=== PATIENT | female | born 1945 | race Caucasian/White ===

== ENCOUNTER 2019-05-07 09:11 | Inpatient (IN) ==
[2019-05-07] MEDS ORDERED: TYLENOL PO ONE (09:38)
[2019-05-07] MEDS ORDERED: NS 1,000 ML IV ONE (09:38)
--- NOTE | 2019-05-07 09:40 | PROVIDER DOCUMENTATION ---
HPI-General Adult - General Chief Complaint: Nausea Stated Complaint: CHILLS, NAUSEA Time Seen by Provider: 05/07/19 09:23 Source: patient Allergies/Adverse Reactions: Patient Allergies Allergy/AdvReac Type Severity Reaction Status Date / Time niacin Allergy ITCHING Verified 05/07/19 09:20 Home Medications: Home Medication List Medication Instructions Recorded Confirmed Last Taken Type Alprazolam 0.5 mg PO TID 11/05/14 05/07/19 11/05/14 16:15 History Amlodipine Besylate/Benazepril 1 each PO DAILY 11/05/14 05/07/19 11/05/14 07:00 History [Lotrel 10/20 mg Capsule] Chlordiazepoxide/Clidinium Br 1 cap PO TID 11/05/14 05/07/19 11/05/14 12:00 Hist ory [Chlordiazepoxide-Clidinium Cap] Hyoscyamine [Levsin] 0.125 mg PO BID 11/05/14 05/07/19 11/05/14 07:00 History Metoclopramide [Reglan] 10 mg PO AC + HS 11/05/14 05/07/19 11/05/14 07:00 H istory Metoprolol [Lopressor] 12.5 mg PO DAILY 11/05/14 05/07/19 11/04/14 History Omeprazole 40 mg PO DAILY 11/05/14 05/07/19 11/04/14 History SIMVAstatin [Zocor] 40 mg PO QHS 11/05/14 05/07/19 11/04/14 History Sitagliptin Phosphate [Januvia] 100 mg PO DAILY 11/05/14 05/07/19 11/05/14 History Glimepiride 2 mg PO DAILY 05/07/19 05/07/19 Unknown History Pramipexole Di-HCl [Pramipexole 0.125 mg PO TID 05/07/19 05/07/19 Unknown History Dihydrochloride] - History of Present Illness -Gen Adult Nature of Presenting Problems: Pt. is 73 yof that presents with c/o fever, and nausea but no vomiting. Pt. reports she is diabetic. Pt. states her symptoms began last night. Location of Pain/Injury: reports: generalized. denies: none, head, face, mouth, neck, chest, upper extremity, hand(s), abdomen, back, pelvis, genitalia, lower extremity, feet, upper body, lower body, other Pain Radiation: reports: no radiation. denies: arm(s), back, buttocks, chest, epigastric, feet, groin, jaw, flank (L), legs (lower), LLQ, LUQ, neck, periumbilical, flank (R), RLQ, RUQ, shoulder(s), scapula, scrotal, sternal notch, suprapubic, legs (upper), urethral, vaginal, other Quality of Pain: reports: aching. denies: burning, sharp, tightness Severity: reports: moderate. denies: mild, severe Onset/Duration: reports: abrupt, last night Timing: reports: still present. denies: improving, intermittent, getting worse Context/Activities at Onset: reports: none. denies: light activity, moderate activity, vigorous activity, recent emotional stress, recent physical stress, recent trauma history, possible bad food, cold exposure, eating, out of country travel, rest, sleep, sexual activity, other Modifying Factors: improves with: nothing Associated Symptoms: reports: fever/chills, muscle aches, nausea. denies: denies symptoms, anxiety, arm pain, back/neck pain, chest pain, constipation, cough, diaphoresis, diarrhea, dizziness, EENT symptoms, fatigue, genitourinary problems, headaches, heartburn, joint pain, loss of appetite, malaise, sinus congestion/drainage, rash, seizure, shortness of breath, sensory/motor loss, pain with inspiration, swelling/mass in abdomen, syncope, vomiting, weakness, trouble walking, other Similar Symptoms Previously?: Yes Recently seen or treated by another doctor?: No Review of Systems - Adult - REVIEW OF SYSTEMS - ADULT Constitutional: reports: see HPI, chills, fever. denies: fatique, night sweats, weight loss Eyes: reports: no symptoms reported Ears, Nose, Mouth & Throat: reports: no symptoms reported Cardiovascular: reports: no symptoms reported Respiratory: reports: no symptoms reported Gastrointestinal: reports: see HPI, nausea. denies: abdominal pain, difficulty swallowing, vomiting Genitourinary: reports: no symptoms reported Musculoskeletal: reports: see HPI, muscle aches. denies: bone pain, joint pain, neck pain Integumentary: reports: no symptoms reported Neurological: reports: no symptoms reported Psychiatric: reports: no symptoms reported Past History - Adult - PAST MEDICAL HISTORY-ADULT Review of Records: reports: Old Records Reviewed, Nursing Assessment Review, Medications Reviewed, Social history reviewed & non-contributory. Major Childhood Illnesses: reports: denies history Cardiovascular: reports: cardiac disease, HTN, hyperlipidemia, palpitations (PVCs) Gastrointestinal: reports: diverticulosis, GERD, IBS, other (spastic colon) Obstetrical/Gynecological: reports: other (breast cancer) Endocrine/Immune: reports: Diabetes - PRIOR SURGERIES/PROCEDURES Surgical/Procedure History: reports: none - IMMUNIZATION STATUS Childhood Immunizations: NUTD Flu Vaccine: UTD - FAMILY HISTORY Family History: reviewed, not pertinent - SOCIAL HISTORY Smoking: denies Physical Exam-General - PHYSICAL EXAM-ADULT Initial Vital Signs Reviewed: Yes - CONSTITUTIONAL General Appearance: alert, moderate distress, thin. negative: anxious, slow to respond, obtunded, combative - EYES Eyes: PERRL/EOMI, pink conjunctivae - HEAD, EARS, NOSE, MOUTH & THROAT HENMT: normocephalic/atraumatic, moist mucous membranes - NECK Neck: non-tender, full range of motion, supple, normal inspection - RESPIRATORY Respiratory: lungs clear, normal breath sounds - CARDIOVASCULAR Cardiovascular: regular rate, rhythm, no edema, tachycardia. negative: bradycardia, extra beats, friction rub, irregularly irregular - GASTROINTESTINAL (ABDOMEN) Abdominal Exam: normal bowel sounds, non tender, soft - LYMPHATIC Lymphatic: no adenopathy - MUSCULOSKELETAL Back Exam: normal inspection, no CVA tenderness, no vertebral tenderness Extremity: normal range of motion, non-tender, normal gait, normal inspection Peripheral Pulses: radial (R): 2+, radial (L): 2+ - SKIN Integumentary: warm. negative: cyanosis, erythema, mottled, rash, tenderness - NEUROLOGIC Neurologic: grossly normal, no motor/sensory deficits - PSYCHIATRIC Psych/Mental Status: normal mood/affect, normal thought content, normal thought process, oriented x 3. negative: anxious, paranoid, tearful Progress - PLAN OF CARE/RESULTS Progress/Plan/Lab Results: Vital Signs - 8 hr 05/07/19 09:15 Temperature 99.3 F Pulse Rate 106 H Respiratory Rate 20 Blood Pressure 126/55 O2 Sat by Pulse Oximetry 95 Orders Category Date Time Status FSBS [Finger Stick Blood Sugar (ED)] DIRECTED Care 05/07/19 09:36 Ordered Saline Loc NOW Care 05/07/19 09:36 Ordered CHEST-2 VIEWS [RAD] Stat Exams 05/07/19 09:37 Ordered ACETONE SERUM [CHEM] Stat Lab 05/07/19 09:37 Uncollected BLOOD CULTURE [BLDCUL] Stat Lab 05/07/19 09:36 Uncollected CBC WITH ELECTRONIC DIFF [HEME] Stat Lab 05/07/19 09:36 Uncollected CK PROFILE [SP CHEM] Stat Lab 05/07/19 09:36 Uncollected COMPREHENSIVE METABOLIC PANEL [CHEM] Stat Lab 05/07/19 09:36 Uncollected LACTATE, PLASMA [CHEM] Stat Lab 05/07/19 09:[address] W/POSS RFLX CULT [URINALYSIS] Stat Lab 05/07/19 09:36 Uncollected Laboratory Tests 05/07/19 05/07/19 05/07/19 09:35 09:48 09:48 WBC 22.03 H RBC 4.50 Hgb 13.1 Hct 38.8 MCV 86.2 MCH 29.1 MCHC 33.8 RDW Std Deviation 12.6 Plt Count 155 MPV 11.8 H Immature Gran % (Auto) 0.2 Neut % (Auto) 86.8 H Lymph % (Auto) 5.8 L Hendry % (Auto) 6.8 Eos % (Auto) 0.2 Baso % (Auto) 0.2 Immature Gran # (Auto) 0.05 H Neut # (Auto) 19.13 H Lymph # (Auto) 1.27 Hendry # (Auto) 1.49 H Eos # (Auto) 0.05 Baso # (Auto) 0.04 Sodium 137 Potassium 4.1 Chloride 100 Carbon Dioxide 24 L Anion Gap 13 BUN 14 Creatinine 1.0 H Estimated GFR/1.73 m2 54 BUN/Creatinine Ratio 14 Glucose 292 H Calculated Osmolality 285 Calcium 8.9 Total Bilirubin 0.70 AST 11 ALT 10 Alkaline Phosphatase 57 Creatine Kinase 48 Total Protein 6.3 Albumin 4.3 Globulin 2.0 Albumin/Globulin Ratio 2.0 Plasma Lactate Urine Color YELLOW Urine Clarity SL. CLOUDY A Urine pH 5.0 Ur Specific Centuria 1.015 Urine Protein TRACE A Urine Ketones NEGATIVE Urine Blood 1+ A Urine Nitrite POSITIVE A Urine Bilirubin NEGATIVE Urine Urobilinogen NORMAL Urine WBC 2+ A Urine Glucose 2+(250 mg/dL) A Acetone Level 05/07/19 05/07/19 09:48 09:48 WBC RBC Hgb Hct MCV MCH MCHC RDW Std Deviation Plt Count MPV Immature Gran % (Auto) Neut % (Auto) Lymph % (Auto) Hendry % (Auto) Eos % (Auto) Baso % (Auto) Immature Gran # (Auto) Neut # (Auto) Lymph # (Auto) Hendry # (Auto) Eos # (Auto) Baso # (Auto) Sodium Potassium Chloride Carbon Dioxide Anion Gap BUN Creatinine Estimated GFR/1.73 m2 BUN/Creatinine Ratio Glucose Calculated Osmolality Calcium Total Bilirubin AST ALT Alkaline Phosphatase Creatine Kinase Total Protein Albumin Globulin Albumin/Globulin Ratio Plasma Lactate 1.7 Urine Color Urine Clarity Urine pH Ur Specific Centuria Urine Protein Urine Ketones Urine Blood Urine Nitrite Urine Bilirubin Urine Urobilinogen Urine WBC Urine Glucose Acetone Level NEGATIVE Discussed results and plan of care with patient. Patient agrees with plan and verbalizes understanding. Result Diagrams: 05/07/19 09:48 05/07/19 09:48 - XRAY 1 XRAY Study: Chest [facility] - [address] [place] [address] [place], [place] [id number] [place] [address] - [address] [place] [address] Department of Imaging Patient: JOSTIN CEDEÑO Date: 05/07/19#: [id number] : 1945DM [id number] Age/Sex: 73/FRoom/Bed: Loc: P.ED Ordering Physician: Candy Kaplan Family Physician: Cy Bedolla MD Reason for Procedure: fever ___ Signed EXAM: CHEST-2 VIEWS - 05/07/2019 HISTORY: fever TECHNIQUE: Chest two views COMPARISON: 03/05/2019 FINDINGS: Heart size is normal. There is a small to moderate size hiatal hernia with air-fluid level. Inspiration is mildly shallow. There is ill-defined mild infiltrate at the right midlung. There is no dense consolidation, pleural effusion, or pneumothorax identified. There is mid thoracic spondylosis or ankylosis noted. There has been prior right mastectomy. IMPRESSION: Ill-defined mild infiltrate at right midlung. This may relate to bronchopneumonia. Hiatal hernia. Electronically signed by Bryn Willard 05/07/2019 10:18 AM 05/07/19 1018 Interpreting Physician: Bryn Willard MD Dictated Date/Time: 05/07/19 1015 cc: Candy Kaplan; Cy Bedolla MD) XRAY Interpretation: See note - CONSULTS/PCP/HOSPITALIST Notification #1 *Consult/PCP/Hospitalist*: Macey Cisse Time Discussed: 11:40 Reason/Comments: Admission Consult Disposition: Will see in ED, Admit Departure - Departure Date of Disposition Decision: 05/07/19 Time of Disposition Decision: 10:45 DIAGNOSIS: Hyperglycemia Pneumonia Qualifiers: Pneumonia type: due to unspecified organism Laterality: unspecified laterality Lung location: unspecified part of lung Qualified Code(s): J18.9 - Pneumonia, unspecified organism UTI (urinary tract infection) Qualifiers: Urinary tract infection type: acute cystitis Hematuria presence: with hematuria Qualified Code(s): N30.01 - Acute cystitis with hematuria Disposition: ADMITTED INPATIENT 09 Certified Medical Emergency: Emergent Condition: Stable Referrals and Follow-Ups: Cy Bedolla MD [Primary Care Provider] - - Critical Care Note This patient required my direct & personal management of CC.: No Attestation - Physician/ ROSETTA Attestation Patient care was provided by Advanced Practice Provider:: Yes Advanced Practice Provider:: Candy Kaplan Advanced Practice Provider documentation review:: The Mid-level provider documentation, treatment plan and medical decision making was reviewed by the physician who agrees with all treatment and medical decision making by the MLP. The physician spent face to face time with patient:: No Advanced Practice Provider documentation review:: Supervising physician onsite and consulted in the evaluation and care of this patient. The physician did not have a face to face encounter with the patient.
--- NOTE | 2019-05-07 10:20 | Diag Imaging Result Doc PS360 ---
EXAM: CHEST-2 VIEWS - 05/07/2019 HISTORY: fever TECHNIQUE: Chest two views COMPARISON: 03/05/2019 FINDINGS: Heart size is normal. There is a small to moderate size hiatal hernia with air-fluid level. Inspiration is mildly shallow. There is ill-defined mild infiltrate at the right midlung. There is no dense consolidation, pleural effusion, or pneumothorax identified. There is mid thoracic spondylosis or ankylosis noted. There has been prior right mastectomy. IMPRESSION: Ill-defined mild infiltrate at right midlung. This may relate to bronchopneumonia. Hiatal hernia. Electronically signed by Bryn Willard 05/07/2019 10:18 AM
[2019-05-07] MEDS ORDERED: ROCEPHIN 1 GM in NS 50 ML IV ONE (10:30)
[2019-05-07] MEDS ORDERED: ZITHROMAX 500 MG/NS 500 MG/250 ML IVPB IV ONE (10:30)
[2019-05-07 10:35] LABS: BASO# 0.04 X1000 (0.0-0.2); BASO% 0.2 % (0.0-0.8); EOS# 0.05 X1000 (0.0-0.7); EOS% 0.2 % (0.0-10.0); HEMATOCRIT 38.8 % (37.0-47.0); HEMOGLOBIN 13.1 g/dL (12.0-16.0); IMM GRAN# 0.05 X1000 (0.0-0.04); IMM GRAN% 0.2 % (0.0-0.5); LYMPH# 1.27 X1000 (1.2-3.4); LYMPH% 5.8 % (20.5-51.1); MCH 29.1 PG (27-31); MCHC 33.8 g/dL (33-37); MCV 86.2 FL (81-99); MONO# 1.49 X1000 (0.11-0.59); MONO% 6.8 % (1.7-9.3); MPV 11.8 FL (7.4-10.4); NEUT# 19.13 X1000 (1.4-6.5); NEUT% 86.8 % (42.2-75.2); PLT 155 X1000 (130-400); RDW 12.6 % (11.5-14.5); WBC 22.03 X1000 (4.8-10.8)
[2019-05-07 10:47] LABS: ALBUMIN 4.3 g/dL (3.5-5.0); CALCIUM 8.9 mg/dL (8.8-10.2); POTASSIUM 4.1 mmol/L (3.5-5.1); TOTAL BILIRUBIN 0.7 mg/dL (0.20-1.00); TOTAL PROTEIN 6.3 g/dL (6.3-8.3)
[2019-05-07 11:07] LABS: BILIRUBIN URINE NEGATIVE (NEGATIVE); BLOOD URINE 1+ (NEGATIVE); KETONE URINE NEGATIVE (NEGATIVE); LEUKOCYTES URINE 2+ (NEGATIVE); NITRITE URINE POSITIVE (NEGATIVE); PROTEIN URINE TRACE mg/dL (NEGATIVE); SP GRAVITY URINE 1.015; UROBILINOGEN URINE NORMAL
[2019-05-07 11:08] LABS: CLARITY SL. CLOUDY (CLEAR); COLOR YELLOW
[2019-05-07 11:20] LABS: URINE BACTERIA 2+ /HFP; URINE EPITHELIAL CELLS >10 /HPF (<10); URINE RBC <10 /HPF (<10); URINE SOURCE CLEAN CATCH; URINE WBC 20-40 /HPF (<10)
[2019-05-07] MEDS ORDERED: ZOFRAN IV PRN (14:10)
[2019-05-07] MEDS ORDERED: TYLENOL PO PRN (14:10)
[2019-05-07] MEDS: MIRAPEX PO SCH ×2 (14:56→17:00)
[2019-05-07] MEDS: XANAX PO SCH ×2 (14:56→17:00)
[2019-05-07] MEDS: NS 1,000 ML IV SCH (14:57)
[2019-05-07] MEDS: LIBRAX PO SCH ×2 (14:57→17:01)
[2019-05-07] MEDS: REGLAN PO SCH ×2 (14:59→21:30)
--- NOTE | 2019-05-07 21:25 | HISTORY AND PHYSICAL ---
CHIEF COMPLAINT: Fever, nausea. She also complained of lower quadrant abdominal pain. She reports dysuria as well. She was lying supine in bed in no distress. Ms. Cohen states that she woke up in the middle of night, reported she was sweating profusely and felt awful. This prompted her to be evaluated in the ER where she was found to have pneumonia and a urinary tract infection. The patient also had some relative hyperglycemia. She had an elevated white count of 22,000. She reports no CVA tenderness. No uche emesis. No bleeding. PAST MEDICAL HISTORY: She has diabetes. She has chronic anxiety disorder. She has hypertension. She has GERD, dyslipidemia. She has IBS. She has a history of breast cancer. SOCIAL HISTORY: No tobacco or ethanol. ALLERGIES: To niacin. MEDICATIONS: Include Zocor 40, Xanax 0.5 t.i.d., Librax, glimepiride 2 daily, Januvia 100 daily, Levsin 0.125 b.i.d., Lopressor 12.5 daily, amlodipine/benazepril 10/20 daily, omeprazole 40 daily, pramipexole 0.125 t.i.d., Reglan 10 t.i.d. REVIEW OF SYSTEMS: Otherwise negative times a 10-point review of systems. PHYSICAL EXAM: VITAL SIGNS: Blood pressure 123/51, heart rate of 86, respiratory rate 18, temperature 98.3 degrees, 100% on room air. GENERAL: A well-developed female in no acute distress. HEAD EXAM: Normocephalic, atraumatic. EYE EXAM: Pupils equal, round, reactive to light. Extraocular movements were intact. EAR, NOSE AND THROAT EXAM: She had moist mucous membranes. NECK: Supple. CARDIOVASCULAR: Regular rate and rhythm. PULMONARY: She has rales at the right base. No wheezing. GASTROINTESTINAL: Soft, nontender, nondistended. Bowel sounds are positive. GENITOURINARY: There was no suprapubic tenderness, and she had no CVA tenderness. MUSCULOSKELETAL: 4 to 5 in all 4 extremities. NEUROLOGICAL EXAM: Cranial nerves 2 through 12 were grossly intact. LABORATORY DATA: White count is 22, hemoglobin and hematocrit 13 and 38, platelets 155,000. Basic was normal except for sugar 286. UA positive nitrites, 20 to 40 white blood cells, but she had greater than 10 squamous cells. Chest x-ray showed some haziness that may be a right lower lobe infiltrate. ASSESSMENT: This is a 73-year-old diabetic female with hypertension, hyperlipidemia presenting with a relatively low pneumonia but a complicated urinary tract infection. 1. Complicated urinary tract infection. We will continue empiric antibiotics with Rocephin. She is symptomatic with lower quadrant pain. If she is not much improved, we may need to consider CT imaging to evaluate for pyelonephritis. 2. Diabetes, which is not under good control currently, may be secondary to infection. We will continue her medications, pursue sliding scale insulin and follow closely. 3. Hypertension. We will continue regular medications and follow. 4. Right lower lobe pneumonia. We will continue empiric antibiotics with Rocephin and azithromycin, pulmonary toilet and follow. DISPOSITION: Overall improved. Anticipate discharge hopefully in the next 24 to 48 hours. cc: MD Cy Osborne MD
[2019-05-07] MEDS: HUMULIN R (PARKWAY) SUBQ SCH (21:29)
[2019-05-07] MEDS: LEVSIN PO SCH (21:29)
[2019-05-07] MEDS: ZOCOR PO SCH (21:30)
[2019-05-08] MEDS: NS 1,000 ML IV SCH ×4 (00:59→23:28)
[2019-05-08] MEDS: HUMULIN R (PARKWAY) SUBQ SCH ×4 (06:27→20:44)
[2019-05-08] MEDS: PRILOSEC PO SCH (06:27)
[2019-05-08 07:02] LABS: BASO# 0.03 X1000 (0.0-0.2); BASO% 0.3 % (0.0-0.8); EOS# 0.19 X1000 (0.0-0.7); EOS% 1.8 % (0.0-10.0); HEMATOCRIT 35.3 % (37.0-47.0); HEMOGLOBIN 11.6 g/dL (12.0-16.0); IMM GRAN# 0.02 X1000 (0.0-0.04); IMM GRAN% 0.2 % (0.0-0.5); LYMPH# 1.88 X1000 (1.2-3.4); LYMPH% 17.5 % (20.5-51.1); MCH 28.7 PG (27-31); MCHC 32.9 g/dL (33-37); MCV 87.4 FL (81-99); MONO# 0.82 X1000 (0.11-0.59); MONO% 7.6 % (1.7-9.3); MPV 10.9 FL (7.4-10.4); NEUT# 7.82 X1000 (1.4-6.5); NEUT% 72.6 % (42.2-75.2); PLT 130 X1000 (130-400); RBC 4.04 XMIL (4.2-5.4); RDW 12.7 % (11.5-14.5); WBC 10.76 X1000 (4.8-10.8)
[2019-05-08 07:20] LABS: AGAP 9; ALBUMIN 3.5 g/dL (3.5-5.0); ALKALINE PHOSPHATASE 51 U/L (32-104); BUN 9 mg/dL (8-22); CALCIUM 8.3 mg/dL (8.8-10.2); CHLORIDE 106 mmol/L (98-107); COSMO 283; CREATININE 0.7 mg/dL (0.5-0.9); ESTIMATED GFR > 60; GLUCOSE 185 mg/dL (70-104); GOT 10 U/L (10-30); GPT 8 U/L (10-36); MAGNESIUM 1.5 mg/dL (1.5-2.7); SODIUM 140 mmol/L (136-145); TCO2 25 mmol/L (25-35); TOTAL PROTEIN 5.8 g/dL (6.3-8.3)
--- NOTE | 2019-05-08 07:29 | Diag Imaging Result Doc PS360 ---
EXAM: CHEST-2 VIEWS HISTORY: pneumonia TECHNIQUE: Chest two views COMPARISON: 05/07/2019 FINDINGS: The lungs are well expanded. The heart is not enlarged. The vessels are not distended. There are no infiltrates. No pleural effusions. There are surgical clips in the right axilla. Small hiatal hernia. IMPRESSION: No definite pneumonia. Electronically signed by Antolin Duran 05/08/2019 7:26 AM
[2019-05-08 07:55] LABS: HEMOGLOBIN A1C 9.1 % (4.8-6.0)
[2019-05-08] MEDS: LEVSIN PO SCH ×2 (08:06→20:44)
[2019-05-08] MEDS: JANUVIA PO SCH (08:06)
[2019-05-08] MEDS: AMARYL PO SCH (08:06)
[2019-05-08] MEDS: MIRAPEX PO SCH ×3 (08:07→16:59)
[2019-05-08] MEDS: REGLAN PO SCH ×4 (08:07→20:43)
[2019-05-08] MEDS: NORVASC PO SCH (08:07)
[2019-05-08] MEDS: LIBRAX PO SCH ×3 (08:07→16:59)
[2019-05-08] MEDS: LOTENSIN PO SCH (08:09)
[2019-05-08] MEDS: XANAX PO SCH ×3 (08:09→16:59)
[2019-05-08] MEDS: LOPRESSOR PO SCH (08:09)
[2019-05-08] MEDS: ROCEPHIN 1 GM in NS 50 ML IV SCH (10:34)
[2019-05-08] MEDS: ZITHROMAX 500 MG/NS 500 MG/250 ML IVPB IV SCH (11:05)
--- NOTE | 2019-05-08 20:01 | PROGRESS NOTE ---
DATE: 05/08/2019 SUBJECTIVE: Patient has no new complaints. Notes that she is feeling okay. In fact, states that she feels a lot better than she did on admission. Denies any fevers or chills. PHYSICAL EXAMINATION: Vitals: Temperature 98.3, pulse 79, respiratory rate 18, BP 130/65. General: Patient is awake currently in no distress. Pleasant to talk with, sitting up on the side of bed. HEENT: Normocephalic. Neck: Supple. Cardiovascular: Regular rate. Chest: Clear and nonlabored. Abdomen: Soft, nondistended. Extremities: Moves all extremities. ASSESSMENT: 1. Gram-negative mustapha urinary tract infection. Culture and sensitivity still pending. 2. Diabetes. 3. Hypertension. 4. Right lower lobe pneumonia. 5. Leukocytosis. White count of 22, currently down to 10. PLAN: We will continue Rocephin and azithromycin. We will follow her cultures. Hopefully, she can be discharged home tomorrow if symptoms continue to improve. cc: Alberto Knox MD
[2019-05-08] MEDS: ZOCOR PO SCH (20:43)
[2019-05-09 05:15] VITALS: BP 133/62
[2019-05-09] MEDS: NS 1,000 ML IV SCH (05:48)
[2019-05-09] MEDS: PRILOSEC PO SCH ×2 (05:49→06:09)
[2019-05-09] MEDS: HUMULIN R (PARKWAY) SUBQ SCH ×2 (06:08→11:17)
[2019-05-09 06:09] LABS: HEMATOCRIT 32.9 % (37.0-47.0); HEMOGLOBIN 10.8 g/dL (12.0-16.0); MCH 28.6 PG (27-31); MCHC 32.8 g/dL (33-37); RBC 3.78 XMIL (4.2-5.4); RDW 12.5 % (11.5-14.5); WBC 8.18 X1000 (4.8-10.8)
[2019-05-09 06:10] LABS: BASO# 0.05 X1000 (0.0-0.2); BASO% 0.6 % (0.0-0.8); EOS# 0.26 X1000 (0.0-0.7); EOS% 3.2 % (0.0-10.0); IMM GRAN# 0.04 X1000 (0.0-0.04); IMM GRAN% 0.5 % (0.0-0.5); LYMPH% 23.2 % (20.5-51.1); MONO# 0.71 X1000 (0.11-0.59); MONO% 8.7 % (1.7-9.3); MPV 11.4 FL (7.4-10.4); NEUT# 5.22 X1000 (1.4-6.5); NEUT% 63.8 % (42.2-75.2); PLT 139 X1000 (130-400)
[2019-05-09 06:24] LABS: AGAP 9; BUN 9 mg/dL (8-22); CALCIUM 7.6 mg/dL (8.8-10.2); CHLORIDE 107 mmol/L (98-107); COSMO 284; CREATININE 0.7 mg/dL (0.5-0.9); ESTIMATED GFR > 60; GLUCOSE 177 mg/dL (70-104); POTASSIUM 3.6 mmol/L (3.5-5.1); SODIUM 141 mmol/L (136-145); TCO2 25 mmol/L (25-35)
[2019-05-09] MEDS: LEVSIN PO SCH (08:39)
[2019-05-09] MEDS: MIRAPEX PO SCH (08:39)
[2019-05-09] MEDS: LOTENSIN PO SCH (08:39)
[2019-05-09] MEDS: AMARYL PO SCH (08:39)
[2019-05-09] MEDS: XANAX PO SCH (08:40)
[2019-05-09] MEDS: LOPRESSOR PO SCH (08:40)
[2019-05-09] MEDS: REGLAN PO SCH ×2 (08:40→11:16)
[2019-05-09] MEDS: LIBRAX PO SCH (08:40)
[2019-05-09] MEDS: JANUVIA PO SCH (08:40)
[2019-05-09] MEDS: NORVASC PO SCH (10:22)
[2019-05-09] MEDS: ROCEPHIN 1 GM in NS 50 ML IV SCH (11:15)
[2019-05-09] MEDS: ZITHROMAX 500 MG/NS 500 MG/250 ML IVPB IV SCH (11:16)
--- NOTE | 2019-05-10 02:08 | DISCHARGE SUMMARY ---
ADMISSION DATE: 05/07/2019 DISCHARGE DATE: 05/09/2019 DIAGNOSES: 1. Right lower lobe pneumonia, community acquired. 2. Diabetes mellitus. 3. Hypertension. 4. Leukocytosis, resolved. 5. Extended spectrum beta-lactamase negative Escherichia coli urinary tract infection. DIAGNOSTICS: 1. 05/07/2019 chest x-ray revealed ill-defined mild infiltrate at the right mid lung. This may relate to bronchopneumonia and a hiatal hernia. 2. 05/08/2019 chest x-ray reveals no definite pneumonia. MICROBIOLOGY: 1. Blood cultures x2 revealed no growth after 48 hours. 2. Urine culture revealed E coli UTI ESBL negative. HOSPITAL COURSE: Ms Cohen presented to the emergency room complaining of fever and nausea as well as lower quadrant abdominal pain. She was found to have a right middle lobe pneumonia as well as an E coli UTI. She was initially placed on Rocephin and azithromycin. She will be discharged on Omnicef and azithromycin. White count was 22 on admission. It is down to 8 today. We continued her home medications throughout the hospitalization and thankfully she is ready for discharge. DISCHARGE VITAL SIGNS: Blood pressure is 133/62 with a heart rate of 75, respirations 20, temperature 98.4 degrees with room air saturations 98%. DISCHARGE PHYSICAL EXAMINATION: Cardiovascular: Regular rate and rhythm. S1 and S2 appreciated. Pulmonary: Breath sounds are clear with no increased work of breathing noted. Gastrointestinal: Abdomen is soft, nontender, nondistended with bowel sounds in all 4 quadrants. Genitourinary: No CVA or suprapubic tenderness. Extremities: No clubbing, cyanosis, or edema. Calves are nontender bilateral. Peripheral pulses are palpable x4 extremities. Neurologic: She is alert and oriented x3. DISCHARGE MEDICATIONS: 1. Xanax 0.5 mg p.o. t.i.d. 2. Lotrel 10/20 daily. 3. Zithromax 250 mg p.o. daily x4 days. 4. Omnicef 350 mg p.o. b.i.d. x7 days. 5. Librax 1 capsule p.o. t.i.d. 6. Glimepiride 2 mg p.o. daily. 7. Levsin 0.125 mg sublingual b.i.d. 8. Reglan 10 mg p.o. a.c. and at bedtime. 9. Metoprolol succinate 12.5 mg p.o. daily. 10. Omeprazole 40 mg p.o. daily. 11. Mirapex 0.125 p.o. t.i.d. 12. Zocor 40 mg p.o. at bedtime. 13. Januvia 100 mg p.o. daily. FOLLOWUP: 1. Dr. Cy Bedolla in 2 weeks. 2. She has been instructed to call to be seen sooner or return to the emergency room for any syncope, dizziness, chest pain, palpitations, nausea, vomiting, diarrhea, constipation, black or bloody vomitus or stools, hematuria, dysuria, frequency, urgency, temperature greater than 101, or for any questions or concerns that she may. 3. She is being discharged home in stable condition with family members. TIME SPENT: This is a greater than 30 minute discharge. Dictated by RUIZ Shelby for Alberto Knox MD cc: RUIZ Shelby MD
--- NOTE | 2019-05-10 15:35 | DISCHARGE SUMMARY ---
ADMISSION DATE: 05/07/2019 DISCHARGE DATE: 05/09/2019 Patient seen and examined by myself. Full note dictated and discussed with nurse practitioner. Patient presented to the hospital with leukocytosis with a white count of 22, on discharge it is 8. She does have a urinary tract infection, is currently on antibiotics for that as well as right lower lobe pneumonia. On discharge she is awake, alert. She is feeling tremendously better. Therefore, she will be discharged home. Please see full note. cc: Alberto Knox MD
== END 2019-05-09 12:37 | disposition home or self-care (01) | DRG 689 ==
LOC: P.ED 09:11 → SUATTDRO 13:38 → P.MEDSURG 13:38
PROVIDERS: ATTEND Family Medicine